=== PATIENT | female | born 1940 | race Caucasian/White ===

== ENCOUNTER 2021-08-28 10:04 | Emergency (ER) | payer MEDICARE, SELFPAY ==
--- NOTE | ~2021-08-28 | CT_ITS ---
EXAMINATION: CT BRAIN WITHOUT CONTRAST CT CERVICAL SPINE WITHOUT CONTRAST CT PELVIS WITHOUT CONTRAST CT LUMBAR SPINE WITHOUT CONTRAST CLINICAL INFORMATION: Trauma. COMPARISON: None TECHNIQUE: 5 mm thin axial and reformatted 2 mm thin sagittal and coronal images of brain were obtained. Subsequently axial 3 mm thin and reformatted 2 mm thin images of cervical spine were obtained. Axial 2 mm thin and reformatted 2 mm thin sagittal and coronal images of pelvis were obtained. In addition axial 2 mm thin and reformatted sagittal and coronal images of lumbar spine were obtained. DLP: 896 + 630 = 1526 mGy-cm FINDINGS: Brain: There is no acute intra-axial, extra-axial bleed, masses or midline shift. There is no acute infarction evolution. The lateral ventricles are symmetrical in size and configuration without enlargement. Bone windows reveal no calvarial abnormality. Bilateral paranasal sinuses and mastoid air cells are well-aerated. There is no scalp soft tissue abnormality. Cervical Spine: On sagittal reconstructed images there is mild straightening of cervical lordosis. The vertebral heights, alignment and disc heights are normal. Craniovertebral junction and C1-C2 alignment is normal. No visible acute fracture, dislocation or subluxation seen. The prevertebral and paravertebral soft tissues are normal. There is mild ventral spondylosis C5-C6 and C6-C7 disc levels. Bilateral thyroid lobes are symmetrical. The central trachea and the bronchi are widely patent. There is mild bilateral apical pleural thickening and parenchymal scarring. Pelvis: There is normal symmetry of SI and bilateral hip joints. There is no visible fracture, dislocation involving the hips or the pelvic bones. Severe degenerative changes with vacuum disc phenomena at L5-S1 disc level is noted. There is moderate stool and gas seen in the colon. The small-bowel loops are normal caliber. No free air or free fluid seen. The urinary bladder is distended. Lumbar Spine: On sagittal reconstructed images, there is maintained lumbar lordosis. There is loss of L5-S1 disc height with vacuum disc phenomena and endplate sclerosis. Rest of the disc heights are normal. No visible acute fracture, dislocation or lytic process seen. There is a partially exophytic cyst measuring 3.9 x 3.9 x 5.2 cm mid to lower pole right kidney. No radiopaque calculi or hydronephrosis seen. There are no gallstones. Visualized liver, spleen and adrenal glands are unremarkable. CT/CT cervical spine wo con IMPRESSION: No acute intracranial process seen. There is no acute fracture or dislocation of cervical spine. There is mild ventral spondylosis C5-C6 and C6-C7 disc levels. There is no acute fracture or dislocation in the pelvis. Especially hip joints and SI joints are symmetrical. There is no acute fracture or dislocation in the lumbar spine except for severe degenerative changes, vacuum disc phenomena and endplate sclerosis at L5-S1 disc level.
[2021-08-28 10:18] VITALS: BP 138/70; BP 152/69; PULSE 102; PULSE 108; RESP 16; TEMP 37.1; O2SAT 97; O2SAT 98; BMI 24.2
--- NOTE | 2021-08-28 10:19 | ED.FALL ---
HPI - Fall General Chief Complaint: Fall Stated Complaint: LEFT HIP PAIN AND BACK PAIN S/P FALL Time Seen by Provider: 08/28/21 10:14 Source: patient Mode of arrival: EMS Limitations: no limitations History of Present Illness HPI Narrative: This is a very pleasant 81 years old with history of DJD of the spine presented to the ED after a fall at home. The fall was mechanical she tripped with a cane. She is complaining of lower back pain and left hip pain. Denies LOC denies any chest pain, dizziness any other concern MD complaint: fall Onset (ago): hour(s) (3) Fall from: standing Fall witnessed: no Place fall occurred: home Loss of consciousness: none Context: tripped/slipped Related Data Allergies Allergy/AdvReac Type Severity Reaction Status Date / Time No Known Allergies Allergy Verified 08/28/21 10:20 Review of Systems Cardiovascular: Cardiovascular: Reports no additional cardiovascular complaints and Denies chest pain Respiratory: Respiratory: Reports no additional respiratory complaints PMFSH Past Medical History PMFSH Narrative: DJD SPINE Medical History High cholesterol HTN (hypertension) Social History Social History Advance Directives: No Advance Directives Information Provided: No Physical Exam Vital Signs: Vital Signs: Last Vital Signs Temp 98.7 F 08/28/21 10:18 Pulse 102 H 08/28/21 12:19 Resp 16 08/28/21 10:18 BP 152/69 H 08/28/21 12:19 Pulse Ox 98 08/28/21 12:19 Body Mass Index 24.2 Const: General: cooperative, healthy appearing and comfortable HENMT: Head: Yes normal to inspection Face and sinus: Yes normal facial exam and Yes face symmetric Neck: Neck: Yes normal visual inspection, Yes full ROM and Yes no lymphadenopathy Lymphatic: no lymphadenopathy noted Chest: Chest palpation & inspection: normal inspection of the chest Resp: Effort & Inspection: normal respiratory effort Auscultation: clear to auscultation bilaterally Cardio: Jugular venous distension: no JVD Rate: regular rate Rhythm: regular rhythm GI: Inspection: Yes normal to inspection Palpation (GI): Soft to palpation, nontender, no guarding and not rigid Skin: General skin exam: no rashes or lesions noted, elasticity normal and turgor normal Rashes: no rashes Trauma: no lacerations or abrasions Wounds: no wounds Extrem: Other: tenderness left hip Course Reevaluation(s) Reevaluation #1: Patient was seen in consultation by the Physical therapy Department, she was assested by the physical therapist ;she was able to ambulate in the hallway without any problems. She also was seen by the clinical case manager. Patient will be discharged home . I spoke with with the family (daughter) MDM - Fall Lab Data Result diagrams: 08/28/21 10:33 08/28/21 10:33 Labs: Lab Results 08/28/21 08/28/21 Range/Units 10:33 10:33 WBC 7.1 (4.8-10.8) X10*3/uL RBC 4.12 L (4.20-5.50) X10*6/uL Hgb 12.5 (12.0-16.0) g/dl Hct 38.8 (37-47) % MCV 94.2 (80-98) fL MCH 30.3 (27.0-33.0) pg MCHC 32.2 (31.0-35.0) g/dl RDW 13.2 (11.0-16.0) % Plt Count 299 (160-400) X10*3/uL MPV 8.9 L (9.4-12.3) fL Immature Gran % (Auto) 0.3 (0.0-0.4) % Neut % (Auto) 65.1 (45-73) % Lymph % (Auto) 25.7 (20-40) % [place] % (Auto) 7.7 (2-11) % Eos % (Auto) 0.6 (0-4) % Baso % (Auto) 0.6 (0-2) % Lymph # (Auto) 1.8 (1.2-4.9) X10*3/uL [place] # (Auto) 0.6 (0.1-1.2) X10*3/uL Eos # (Auto) 0.0 (0.0-0.4) X10*3/uL Baso # (Auto) 0.0 (0.0-0.2) X10*3/uL Abs Immat Gran (auto) 0.02 (0.00-0.03) X10*3/uL Absolute Neuts (auto) 4.7 (2.0-8.3) X10*3/uL Absolute Nucleated RBC 0.000 (0.0-0.012) X10*3/uL Nucleated RBC % (auto) 0.0 (0.0-0.2) /100WBC Sodium 137 (135-145) mmol/L Potassium 3.5 (3.3-5.1) mmol/L Chloride 102 (96-108) mmol/L Carbon Dioxide 28 (22-29) mmol/L Anion Gap 11 L (12-20) BUN 10 (9-16) mg/dL Creatinine 0.81 (0.5-1.4) mg/dL Estim Creat Clear Calc 42.3 Estimated GFR > 60 Random Glucose 101 (60-115) mg/dL Calcium 9.8 (8.4-10.2) mg/dL Total Bilirubin 0.4 (0.0-1.0) mg/dL AST 27 (5-31) U/L ALT 20 (0-31) U/L Alkaline Phosphatase 76 (39-117) U/L Total Protein 7.3 (6.5-8.0) g/dL Albumin 4.3 (3.5-5.0) g/dL Imaging Data CT scan - head: Radiologist's impression: FINDINGS: Brain: There is no acute intra-axial, extra-axial bleed, masses or midline shift. There is no acute infarction evolution. The lateral ventricles are symmetrical in size and configuration without enlargement. Bone windows reveal no calvarial abnormality. Bilateral paranasal sinuses and mastoid air cells are well-aerated. There is no scalp soft tissue abnormality. ct cspine/lumbarspine: Radiologist's impression: 7 disc levels. Bilateral thyroid lobes are symmetrical. The central trachea and the bronchi are widely patent. There is mild bilateral apical pleural thickening and parenchymal scarring. Pelvis: There is normal symmetry of SI and bilateral hip joints. There is no visible fracture, dislocation involving the hips or the pelvic bones. Severe degenerative changes with vacuum disc phenomena at L5-S1 disc level is noted. There is moderate stool and gas seen in the colon. The small-bowel loops are normal caliber. No free air or free fluid seen. The urinary bladder is distended. Lumbar Spine: On sagittal reconstructed images, there is maintained lumbar lordosis. There is loss of L5-S1 disc height with vacuum disc phenomena and endplate sclerosis. Rest of the disc heights are normal. No visible acute fracture, dislocation or lytic process seen. There is a partially exophytic cyst measuring 3.9 x 3.9 x 5.2 cm mid to lower pole right kidney. No radiopaque calculi or hydronephrosis seen. There are no gallstones. Visualized liver, spleen and adrenal glands are unremarkable. CT/CT pelvis wo con IMPRESSION: No acute intracranial process seen. ? There is no acute fracture or dislocation of cervical spine. There is mild ventral spondylosis C5-C6 and C6-C7 disc levels. ? There is no acute fracture or dislocation in the pelvis. Especially hip joints and SI joints are symmetrical. ? There is no acute fracture or dislocation in the lumbar spine except for severe degenerative changes, vacuum disc phenomena and endplate sclerosis at L5-S1 disc level.? Dictated By: Bobby Lira MD Discharge Plan Discharge Clinical Impression: Fall in elderly patient, Contusion of lower back Patient Disposition: Home, Self-Care Instructions: Fall Prevention for Older Adults (ED), Musculoskeletal Pain (ED) Additional Instructions: Follow-up with your primary care physician on Monday, return if you worse any concern, take Tylenol as needed for pain Referrals: Physician,Sheree J [Primary Care Provider] - 2 days
[2021-08-28 10:39] LABS: MANUAL DIFF FLAG NO
[2021-08-28 10:40] LABS: Basophils Percent Auto 0.6 % (0-2); Eosinophils Percent Auto 0.6 % (0-4); Hematocrit 38.8 % (37-47); Hemoglobin 12.5 g/dl (12.0-16.0); Imm Gran Abs Auto 0.02 X10*3/uL (0.00-0.03); Imm Gran Pct Auto 0.3 % (0.0-0.4); Lymphocytes Absolute Auto 1.8 X10*3/uL (1.2-4.9); Lymphocytes Percent Auto 25.7 % (20-40); Mean Corpuscular HGB Conc 32.2 g/dl (31.0-35.0); Mean Corpuscular Hemoglobin 30.3 pg (27.0-33.0); Mean Corpuscular Volume 94.2 fL (80-98); Mean Platelet Volume 8.9 fL (9.4-12.3); Monocytes Absolute Auto 0.6 X10*3/uL (0.1-1.2); Monocytes Percent Auto 7.7 % (2-11); Neutrophils Absolute Auto 4.7 X10*3/uL (2.0-8.3); Neutrophils Percent Auto 65.1 % (45-73); Platelet Count 299 X10*3/uL (160-400); Red Blood Count 4.12 X10*6/uL (4.20-5.50); Red Cell Distribution Width 13.2 % (11.0-16.0); White Blood Count 7.1 X10*3/uL (4.8-10.8)
[2021-08-28 11:08] LABS: Alanine Aminotransferase 20 U/L (0-31); Albumin Level 4.3 g/dL (3.5-5.0); Alkaline Phosphatase 76 U/L (39-117); Anion Gap 11 (12-20); Aspartate Amino Transferase 27 U/L (5-31); Bilirubin Total 0.4 mg/dL (0.0-1.0); Blood Urea Nitrogen 10 mg/dL (9-16); Calcium 9.8 mg/dL (8.4-10.2); Carbon Dioxide 28 mmol/L (22-29); Chloride 102 mmol/L (96-108); Creatinine Clr Calc Pharmacy 42.3; Estimated Glomerular Filt Rate > 60; Glucose Random 101 mg/dL (60-115); Potassium 3.5 mmol/L (3.3-5.1); Sodium 137 mmol/L (135-145); Total Protein 7.3 g/dL (6.5-8.0)
[2021-08-28 12:19] VITALS: BP 152/69; PULSE 102; O2SAT 98
--- NOTE | 2021-08-28 12:22 | MHC.CM.ED ---
Received consult for assessment of d/c needs: pt resides alone and has [employer] services for housework and ADL assistance. Pt uses a walker at times. Family assists with transportation and any other need pt may have. Pt able to ambulate with PT without issue: no services anticipated: imaging did not support acute injury or need for admission. pt should be able to return to home with existing supports. Dtr to transport
[2021-08-28] MEDS: Acetaminophen 325 MG TABLET 650 MG PO (12:30)
[2021-08-28 13:38] VITALS: BP 124/81; PULSE 81
== END 2021-08-28 13:40 | disposition home or self-care (01) ==
PROVIDERS: Emergency Provider Emergency Medicine
DX: S30.0XXA Contusion of lower back and pelvis, initial encounter (principal); M54.2 Cervicalgia; G44.309 Post-traumatic headache, unspecified, not intractable; W01.0XXA Fall on same level from slipping, tripping and stumbling without subsequent striking against object, initial encounter; Y93.9 Activity, unspecified; Y92.9 Unspecified place or not applicable; Y99.9 Unspecified external cause status
CPT/HCPCS: 36415; 70450; 72125; 72131; 72192; 80053; 85025; 97161; 99284

== ENCOUNTER 2023-08-10 18:44 | Emergency (ER) | payer MEDICARE, SELFPAY ==
[2023-08-10 18:48] VITALS: BP 154/104; PULSE 86; O2SAT 99
[2023-08-10 19:28] VITALS: BP 184/77; PULSE 96; RESP 18; TEMP 36.6; O2SAT 83
[2023-08-10 19:32] VITALS: BP 184/77; PULSE 88; RESP 19; TEMP 36.8; O2SAT 100; BMI 21.7
--- NOTE | 2023-08-10 20:39 | ED.CHESTPAIN ---
HPI - Chest Pain General Chief Complaint: Chest Pain Stated Complaint: covid pos. weakness Time Seen by Provider: 08/10/23 19:23 History of Present Illness HPI narrative: Patient is an 83-year-old female presents today with having coughing congestion upper respiratory symptoms generalized malaise. Patient tested positive for COVID yesterday. Positive subjective fever at home. Positive generalized malaise. Have chest pain only on coughing. Patient vaccinated for COVID x3. No nausea no vomiting. Patient claims she is not taking any medications. Related Data Previous Rx's Medication Instructions Recorded nirmatrelvir 300 mg (150 mg See Rx Instructions PO .COMPLEX 08/10/23 x2)-ritonavir 100 mg tablet,dose #30 ea pack (Paxlovid) Allergies Allergy/AdvReac Type Severity Reaction Status Date / Time No Known Allergies Allergy Verified 08/28/21 10:20 Review of Systems Review of Systems: Positive generalized malaise positive cough and upper respiratory symptoms Yes all other systems are reviewed and are negative [facility] Past Medical History Attestation statement: The following information was validated with the patient. Medical History High cholesterol HTN (hypertension) Social History Social History Advance Directives: No Advance Directives Information Provided: No Physical Exam Vital Signs: Vital Signs: Last Vital Signs Temp 98.2 F 08/10/23 19:32 Pulse 88 08/10/23 19:32 Resp 19 08/10/23 19:32 BP 184/77 H 08/10/23 19:32 Pulse Ox 100 08/10/23 19:32 O2 Del Method Room Air 08/10/23 19:32 BMI result Body Mass Index 21.7 Appearance: Alert. Oriented X3. No acute distress. Eyes: Pupils equal, round and reactive to light. ENT: Pharynx normal. Neck: Normal inspection. Neck supple. No lymph nodes noted. No crepitus CVS: Normal heart rate and rhythm. Pulses normal. Normal S1 and S2 Respiratory: No respiratory distress. Breath sounds normal. No Wheezing. No rales Abdomen: Soft and nontender. No rigidity. No distention. good BS x4 Skin: Skin warm and dry. Normal skin color. Normal skin turgor. Extremities: No lower extremity edema. Neurovascular intact to all extremities. No Lacerations. No Rash Neuro: Oriented X 3. No motor deficit. No sensory deficit. Moving all extermities. No slurred speech Medical Decision Making Medical Decision Making [facility] Narrative: Patient well-appearing O2 sat is 100% on room air no evidence for hypoxia currently on no medication risk and diet and benefit of antiviral explained to patient. Elected to take the antiviral. A prescription of Paxilovid was sent. Patient 1 set of enzyme was negative. My interpretation of the patient's EKG showed a sinus rhythm heart rate is 90 IN QRS QTC within normal limits there is no acute ST segment elevation. Chest pain not consistent with ACS. Positive coughing positive upper respiratory symptoms positive low-grade fever this is not ACS. More likely this is secondary to COVID. Patient in stable condition. Appear well hydrated. Labs showed a hemoglobin of 12.7. Differential Diagnosis Differential Diagnoses: The differential diagnosis associated with the presentation includes COVID, ACS, pneumonia, pneumothorax Lab Data [facility] Lab Attestation statement: I reviewed the patient's lab results. 08/10/23 20:08 08/10/23 20:08 Labs: Lab Results 08/10/23 Range/Units 20:08 WBC 5.3 (4.8-10.8) X10*3/uL RBC 4.12 L (4.20-5.50) X10*6/uL Hgb 12.7 (12.0-16.0) g/dl Hct 37.3 (37.0-47.0) % MCV 90.5 (80.0-98.0) fL MCH 30.8 (27.0-33.0) pg MCHC 34.0 (31.0-35.0) g/dl RDW 13.1 (11.0-16.0) % Plt Count 255 (160-400) X10*3/uL MPV 8.7 L (9.4-12.3) fL Immature Gran % (Auto) 1.0 H (0.0-0.4) % Neut % (Auto) 74.4 H (45-73) % Lymph % (Auto) 11.6 L (20-40) % [place] % (Auto) 12.2 H (2-11) % Eos % (Auto) 0.4 (0-4) % Baso % (Auto) 0.4 (0-2) % Lymph # (Auto) 0.6 L (1.2-4.9) X10*3/uL [place] # (Auto) 0.6 (0.1-1.2) X10*3/uL Eos # (Auto) 0.0 (0.0-0.4) X10*3/uL Baso # (Auto) 0.0 (0.0-0.2) X10*3/uL Abs Immat Gran (auto) 0.05 H (0.00-0.03) X10*3/uL Absolute Neuts (auto) 3.9 (2.0-8.3) x10*3/uL Absolute Nucleated RBC 0.000 (0.0-0.012) X10*3/uL Nucleated RBC % (auto) 0.0 (0.0-0.2) /100WBC Sodium 136 (135-145) mmol/L Potassium 4.2 (3.3-5.1) mmol/L Chloride 101 (96-108) mmol/L Carbon Dioxide 22 (22-29) mmol/L Anion Gap 17 (12-20) BUN 10 (9-16) mg/dL Creatinine 0.72 (0.5-1.4) mg/dL Estim Creat Clear Calc 43.9 Estimated GFR > 60 Random Glucose 125 H (60-115) mg/dL Calcium 9.2 D (8.4-10.2) mg/dL Troponin I High Sens < 2.7 (<3.5-17.0) ng/L Independent Interpretation I performed an independent interpretation of an: EKG (Sinus heart rate is 90 IN QRS QTC within normal limits is no acute ST segment elevation noted.) Discharge Plan Discharge Clinical Impression: COVID-19 Patient Disposition: Home, Self-Care Instructions: COVID-19 (Coronavirus Disease 2019) (ED) Prescriptions: New Paxlovid 300 mg (150 mg x 2)-100 mg tablets,dose pack See Rx Instructions .ROUTE .COMPLEX Qty: 30 0RF Rx Instructions: take TWO 150 mg tablets of nirmatrelvir with ONE 100 mg tablet of ritonavir twice daily for 5 days Referrals: Physician,Unknown J [Primary Care Provider] - 08/14/23
[2023-08-10 21:09] VITALS: RESP 20
== END 2023-08-10 21:25 | disposition home or self-care (01) ==
PROVIDERS: Emergency Provider Emergency Medicine Emergency Medical Services
DX: U07.1 COVID-19 (principal)
CPT/HCPCS: 36415; 80048; 84484; 85025; 93005; 99284; 99285